=== PATIENT | male | born 1950 | race Caucasian/White ===

== ENCOUNTER → 2020-08-21 | Outpatient (CLI) | payer MEDICARE ==
[~2020-08-21] MED LIST: GADOTERATE 7.5 MMOL/15ML SYR ONE
== END | disposition home or self-care (01) ==
LOC: RAD 11:17
PROVIDERS: ATTEND Registered Nurse
DX: R25.2 Cramp and spasm (principal); R41.3 Other amnesia
CPT/HCPCS: 70553; A9575